=== PATIENT | male | born 1945 | race Caucasian/White ===

== ENCOUNTER → 2017-01-23 | Outpatient (CLI) | payer OTHER, MEDICARE ==
[~2017-01-23] MED LIST: ASCA500 PO; ASPI81TA28 PO; CHOL20009 PO; COEN90TA PO; GLUCTAB7 PO; LOSA100T26 PO; MULT-506 PO; OMEG10007 PO; SIMV40TA2 PO
[2017-01-23 09:40] LABS: BASO % 1.1 %; BASO ABS # 0.05 K/uL (0-0.2); COMPLETE YES; EOS % 3.6 %; HEMATOCRIT 47.2 % (42-52); IG% 0.2 %; LYMPH % 43.9 %; LYMPH ABS # 2.06 K/uL (1.2-3.4); MEAN CELL VOLUME 88.9 fL (80-100); MEAN CORPUSCULAR HEMOGLOBIN 30.3 pg (25-34); MEAN CORPUSCULAR HGB CONC 34.1 g/dl (32-36); MEAN PLATELET VOLUME 9.7 fL (7.4-10.4); MONO % 11.1 %; NEUT % 40.1 %; PLATELET COUNT 246 K/uL (130-400); RED BLOOD COUNT 5.31 M/uL (4.7-6.1); WHITE BLOOD COUNT 4.69 K/uL (4.8-10.8)
[2017-01-23 09:56] LABS: ALT/SGPT 28 U/L (12-78); BLOOD UREA NITROGEN 16 mg/dl (7-18); BUN/CREATININE RATIO 19.6 (10-20); CALCIUM 9.2 mg/dl (8.5-10.1); CARBON DIOXIDE 27 mmol/L (21-32); CHLORIDE 103 mmol/L (98-107); CHOLESTEROL 143 mg/dl (0-200); GLUCOSE 93 mg/dl (70-99); SODIUM 140 mmol/L (136-145); TRIGLYCERIDES 114 mg/dl (0-150); VERY LOW DENSITY LIPOPROT CALC 23 mg/dl
[2017-01-23 10:06] LABS: ALKALINE PHOSPHATASE 47 U/L (45-117); AST/SGOT 19 U/L (15-37); CHOLESTEROL/HDL RATIO 2.8; HDL CHOLESTEROL 52 mg/dl; LDL CHOLESTEROL CALCULATED 68 mg/dl; PROSTATE SPECIFIC ANTIGEN 0.964 ng/ml (0.000-4.000)
== END | disposition home or self-care (01) ==
LOC: C.LAB1850 08:19
PROVIDERS: ATTEND Internal Medicine
DX: E78.5 Hyperlipidemia, unspecified (principal); D72.821 Monocytosis (symptomatic); Z12.5 Encounter for screening for malignant neoplasm of prostate

== ENCOUNTER → 2018-01-09 | Outpatient (CLI) | payer OTHER, MEDICARE ==
[~2018-01-09] MED LIST changes: -LOSA100T26 PO; +LOSA100T33 PO
[2018-01-09 09:35] LABS: BASO % 1.1 %; BASO ABS # 0.05 K/uL (0-0.2); EOS % 4.6 %; EOS ABS # 0.21 K/uL (0-0.5); HEMATOCRIT 47.1 % (42-52); HEMOGLOBIN 15.8 g/dL (14.0-18.0); IG# 0.01 K/uL (0.00-0.02); LYMPH % 37.8 %; LYMPH ABS # 1.71 K/uL (1.2-3.4); MEAN CELL VOLUME 92.2 fL (80-100); MEAN CORPUSCULAR HEMOGLOBIN 30.9 pg (25-34); MEAN CORPUSCULAR HGB CONC 33.5 g/dl (32-36); MEAN PLATELET VOLUME 10.1 fL (7.4-10.4); MONO % 14.8 %; MONO ABS # 0.67 K/uL (0.11-0.59); NEUT % 41.5 %; NEUT ABS # 1.87 K/uL (1.4-6.5); PLATELET COUNT 220 K/uL (130-400); RED CELL DISTRIBUTION WIDTH CV 13.6 % (11.5-14.5); RED CELL DISTRIBUTION WIDTH SD 45.7 fL (36.4-46.3); WHITE BLOOD COUNT 4.52 K/uL (4.8-10.8)
[2018-01-09 09:54] LABS: ALBUMIN 3.6 gm/dl (3.4-5.0); ALT/SGPT 27 U/L (12-78); AST/SGOT 16 U/L (15-37); BLOOD UREA NITROGEN 16 mg/dl (7-18); CARBON DIOXIDE 27 mmol/L (21-32); CHOLESTEROL 135 mg/dl (0-200); CREATININE 0.83 mg/dl (0.60-1.40); GLUCOSE 96 mg/dl (70-99); POTASSIUM 4.3 mmol/L (3.5-5.1); SODIUM 139 mmol/L (136-145)
[2018-01-09 10:01] LABS: ALKALINE PHOSPHATASE 46 U/L (45-117); LDL CHOLESTEROL CALCULATED 69 mg/dl; TOTAL PROTEIN 7.6 gm/dl (6.4-8.2)
== END | disposition home or self-care (01) ==
LOC: C.LAB1850 07:48
PROVIDERS: ATTEND Internal Medicine
DX: Z12.5 Encounter for screening for malignant neoplasm of prostate (principal); E78.5 Hyperlipidemia, unspecified; D72.821 Monocytosis (symptomatic)